=== PATIENT | male | born 1995 | race Two or more races ===

== ENCOUNTER → 2021-05-28 | Emergency (ER) | payer SELFPAY ==
[~2021-05-28] VITALS: Ht 175.3 cm; Wt 100.0 kg
[~2021-05-28] MED LIST: CEFAZOLIN 1000MG PREMIX 50 ML IV ONE; CEPH250C2 MT; HYDR-4001 MT; IBUP-2030 MT; MORPHINE SULFATE 4 MG/ML CPJ (NOT FOR IM USE) IV ONE
[2021-05-28 21:38] VITALS: BP 145/95
== END | disposition home or self-care (01) ==
LOC: ER 18:46
DX: S31.030A Puncture wound without foreign body of lower back and pelvis without penetration into retroperitoneum, initial encounter (principal); W34.09XA Accidental discharge from other specified firearms, initial encounter; Y93.89 Activity, other specified; Y92.89 Other specified places as the place of occurrence of the external cause; Y99.8 Other external cause status; F12.10 Cannabis abuse, uncomplicated
CPT/HCPCS: 71046; 72170; 74021; 96365; 96375; 99284; J0690; J2270

== ENCOUNTER 2024-04-27 20:39 | Emergency (ER) | payer MEDICAID, OTHER ==
[~2024-04-27] VITALS: Ht 167.6 cm; Wt 108.5 kg
[~2024-04-27 20:39] MED LIST changes: -CEFAZOLIN 1000MG PREMIX 50 ML IV ONE; -MORPHINE SULFATE 4 MG/ML CPJ (NOT FOR IM USE) IV ONE
[2024-04-27 21:34] VITALS: TEMP 98.6; O2SAT 95
[2024-04-27] MEDS ORDERED: AMOX1TAB16 MT (22:57)
[2024-04-27] MEDS ORDERED: BO1 TP (22:57)
[2024-04-27 23:14] VITALS: BP 130/80; PULSE 70; RESP 15; O2SAT 99
[2024-04-27] MEDS: TETANUS, DIPHTHERIA, PERTUSSIS VAC/PF 0.5ML (>10YR OLD) IM ONE (23:17)
== END 2024-04-27 23:18 | disposition home or self-care (01) ==
LOC: ER 20:39
DX: S21.152A Open bite of left front wall of thorax without penetration into thoracic cavity, initial encounter (principal); F12.10 Cannabis abuse, uncomplicated; E78.00 Pure hypercholesterolemia, unspecified; E11.9 Type 2 diabetes mellitus without complications; I10 Essential (primary) hypertension; W50.3XXA Accidental bite by another person, initial encounter; Y93.89 Activity, other specified; Y92.89 Other specified places as the place of occurrence of the external cause; Y99.8 Other external cause status
CPT/HCPCS: 90471; 90715; 99283

== ENCOUNTER 2025-03-18 00:53 | Emergency (ER) | payer OTHER ==
[~2025-03-18] VITALS: Ht 177.8 cm; Wt 116.0 kg
[~2025-03-18 00:53] MED LIST changes: +AMOX1TAB16 MT; +BO1 TP
[2025-03-18 01:02] VITALS: O2SAT 99
[2025-03-18 01:04] VITALS: BP 127/83; PULSE 90; RESP 18; TEMP 37.3; O2SAT 98
== END 2025-03-18 03:55 | disposition home or self-care (01) ==
LOC: ER 00:53
DX: S21.111D Laceration without foreign body of right front wall of thorax without penetration into thoracic cavity, subsequent encounter (principal); E11.9 Type 2 diabetes mellitus without complications; I10 Essential (primary) hypertension; E78.00 Pure hypercholesterolemia, unspecified; J45.909 Unspecified asthma, uncomplicated; X58.XXXD Exposure to other specified factors, subsequent encounter
CPT/HCPCS: 99281; Z7610

== ENCOUNTER 2025-03-18 04:36 | Emergency (ER) | payer OTHER ==
[~2025-03-18] VITALS: Ht 177.8 cm; Wt 113.0 kg
[2025-03-18 04:53] VITALS: BP 123/77; PULSE 89; RESP 18; TEMP 36.9; O2SAT 99
== END 2025-03-18 05:12 | disposition home or self-care (01) ==
LOC: ER 04:36
DX: S01.411D Laceration without foreign body of right cheek and temporomandibular area, subsequent encounter (principal); F12.90 Cannabis use, unspecified, uncomplicated; Z79.899 Other long term (current) drug therapy; X58.XXXD Exposure to other specified factors, subsequent encounter
CPT/HCPCS: 99281; Z7610